=== PATIENT | female | born 1950 | race Caucasian/White ===

== ENCOUNTER → 2017-02-19 | Outpatient (CLI) | payer MEDICARE ==
[~2017-02-19] MED LIST: ARIP20TA8; ASPI-621 PO; CARV25TA12 PO; EZET10TA3 PO; INSU100C SC; INSU100C5 SQ-INSULIN; INSU100I28 SQ-INSULIN; METF10002 PO; NITR0.4T SL; RAMI2.5C PO; ROSU20TA PO; SAXA5TAB PO; TICA90TA PO
== END | disposition home or self-care (01) ==
LOC: PETCFH 12:58
PROVIDERS: ATTEND Internal Medicine Cardiovascular Disease
DX: R07.9 Chest pain, unspecified (principal); R06.00 Dyspnea, unspecified; Z72.0 Tobacco use
CPT/HCPCS: 78472; A9560

== ENCOUNTER 2017-04-04 08:42 | Observation (INO) | payer MEDICARE ==
[~2017-04-04] VITALS: Ht 149.9 cm; Wt 65.1 kg
[2017-04-04] MEDS ORDERED: SODIUM CHLORIDE 0.9% 1,000 ML IV SCH (09:07)
[2017-04-04] MEDS: SODIUM CHLORIDE 0.9% 1,000 ML IV SCH ×2 (09:09→16:47)
[2017-04-04 09:41] VITALS: BP 120/55
[2017-04-04] MEDS ORDERED: FENTANYL PF 250 MCG/5ML ONE (10:11)
[2017-04-04] MEDS ORDERED: MIDAZOLAM 1 MG/ML, 5ML ONE (10:11)
[2017-04-04] MEDS ORDERED: TRAZ150T68 PO (10:15)
[2017-04-04] MEDS ORDERED: NITR0.4T8 SL (10:15)
[2017-04-04] MEDS ORDERED: INSU300I SC (10:15)
[2017-04-04] MEDS ORDERED: ASPI-496 PO (10:15)
[2017-04-04] MEDS ORDERED: CLOP75TA PO (10:15)
[2017-04-04] MEDS ORDERED: EZET10TA3 PO (10:15)
[2017-04-04] MEDS ORDERED: METF500T4 PO (10:15)
[2017-04-04] MEDS ORDERED: ROSU40TA PO (10:15)
[2017-04-04] MEDS ORDERED: LURA40TA PO (10:15)
[2017-04-04 10:19] LABS: ASPARTATE AMINO TRANSFERASE 13 U/L (15-37); BLOOD UREA NITROGEN 9 mg/dL (7-18)
[2017-04-04] MEDS ORDERED: CEFAZOLIN PMX 1GM/50ML 50 ML ONE (12:08)
[2017-04-04] MEDS ORDERED: CEFAZOLIN 1,000 MG ONE ×2 (12:09→12:15)
[2017-04-04] MEDS ORDERED: LIDOCAINE 2%, 20ML ONE (12:09)
[2017-04-04] MEDS ORDERED: ONDANSETRON 2MG/ML, 2ML ONE (12:15)
[2017-04-04] MEDS ORDERED: DEXAMETHASONE 4 MG/ML, 1ML ONE (12:15)
[2017-04-04] MEDS ORDERED: PROPOFOL 10 MG/ML, 20ML ONE (12:15)
[2017-04-04] MEDS ORDERED: EPHEDRINE 50 MG/ML, 1ML IVPush PRN (13:30)
[2017-04-04] MEDS ORDERED: ACETAMINOPHEN 325 MG TABLET PO PRN (13:30)
[2017-04-04] MEDS ORDERED: MIDAZOLAM 1 MG/ML, 2ML IV PRN (13:30)
[2017-04-04] MEDS ORDERED: HYDROmorphone 1 MG/ML, 1ML IV PRN (13:30)
[2017-04-04] MEDS ORDERED: FENTANYL PF 100 MCG/2ML IV PRN (13:30)
[2017-04-04] MEDS ORDERED: ONDANSETRON 2MG/ML, 2ML IVPush PRN (13:30)
[2017-04-04] MEDS ORDERED: ZOLPIDEM 5MG TABLET PO PRN (13:30)
[2017-04-04] MEDS ORDERED: HYDROcodone/APAP 5/325 TABLET PO PRN (13:30)
[2017-04-04] MEDS ORDERED: NITROGLYCERIN 0.4 MG BOTTLE (25 TABS) SL SCH (13:30)
[2017-04-04] MEDS ORDERED: PROMETHAZINE 25 MG/ML, 1ML IV PRN (13:30)
[2017-04-04] MEDS ORDERED: OXYcodone 5 MG/5 ML ORAL.SOL UDC PO PRN (13:30)
[2017-04-04] MEDS ORDERED: SODIUM CHLORIDE 0.45% 1,000 ML IV SCH (13:30)
[2017-04-04] MEDS ORDERED: ACETAMINOPHEN 650 MG/20.3 ML UDC ONE (14:14)
[2017-04-04] MEDS ORDERED: OXYcodone 5 MG/5 ML ORAL.SOL UDC ONE (14:15)
[2017-04-04 14:50] VITALS: BP 102/69
[2017-04-04] MEDS: CEFAZOLIN PMX 1GM/50ML 50 ML IVPB SCH ×2 (17:00→22:06)
[2017-04-04 19:48] VITALS: BP 110/70
[2017-04-04 22:05] VITALS: BP 107/69
[2017-04-04] MEDS: SODIUM CHLORIDE FLUSH 10ML SYR IVF SCH (22:06)
[2017-04-04] MEDS: metFORMIN 500 MG TABLET PO SCH (22:07)
[2017-04-04] MEDS: CARVEDILOL 6.25 MG TABLET PO SCH (22:07)
[2017-04-05] MEDS: SODIUM CHLORIDE 0.9% 1,000 ML IV SCH ×2 (01:09→09:09)
[2017-04-05 02:02] VITALS: BP 105/72
[2017-04-05 08:01] VITALS: BP 105/68
[2017-04-05] MEDS: CEFAZOLIN PMX 1GM/50ML 50 ML IVPB SCH ×3 (08:52→10:07)
[2017-04-05] MEDS: CARVEDILOL 6.25 MG TABLET PO SCH (08:54)
[2017-04-05] MEDS: metFORMIN 500 MG TABLET PO SCH (08:55)
[2017-04-05] MEDS ORDERED: RAMIPRIL 2.5 MG CAPSULE PO SCH (09:00)
[2017-04-05] MEDS: SODIUM CHLORIDE FLUSH 10ML SYR IVF SCH (09:00)
[2017-04-05] MEDS ORDERED: ASPIRIN 81 MG TABLET EC PO SCH (09:00)
[2017-04-05] MEDS ORDERED: CLOPIDOGREL 75 MG TABLET PO SCH (09:00)
[2017-04-05] MEDS ORDERED: EZETIMIBE 10 MG TABLET PO SCH (09:00)
[2017-04-05] MEDS ORDERED: TRAZODONE 150MG TABLET PO SCH (09:00)
== END 2017-04-05 11:50 | disposition home or self-care (01) ==
LOC: CACL 08:42 → EDSTATUS 11:00 → ORIP 13:06 → 5SO 14:53
PROVIDERS: ADMIT Internal Medicine Cardiovascular Disease; ATTEND Internal Medicine Cardiovascular Disease
DX: I25.5 Ischemic cardiomyopathy (principal); I50.9 Heart failure, unspecified; I25.10 Atherosclerotic heart disease of native coronary artery without angina pectoris
CPT/HCPCS: 33249; 36415; 71010; 71020; 80053; 85025; 85610; 93005; 93640; 96365; 96375; C1721; C1779; C1892; C1895; G0378; J0690; J1100; J2250; J2405; J2704; J3010; J3490

== ENCOUNTER 2017-04-10 12:06 | Emergency (ER) | payer MEDICARE ==
[~2017-04-10] VITALS: Ht 149.9 cm; Wt 64.3 kg
[~2017-04-10 12:06] MED LIST changes: +ASPI-496 PO; +CLOP75TA PO; +INSU300I SC; +LURA40TA PO; +METF500T4 PO; +NITR0.4T8 SL; +ROSU40TA PO; +TRAZ150T68 PO
[2017-04-10] MEDS ORDERED: SODIUM CHLORIDE FLUSH 10ML SYR IVF ONE (13:30)
[2017-04-10 13:59] LABS: BLOOD UREA NITROGEN 15 mg/dL (7-18)
[2017-04-10 14:53] VITALS: BP 119/55
[2017-04-10] MEDS ORDERED: OMNIPAQUE 350 MG/ML, 100ML BOTTLE ONE (15:47)
== END 2017-04-10 17:04 | disposition home or self-care (01) ==
LOC: ED 15:55
DX: S04.1 Injury of oculomotor nerve (principal); E11.9 Type 2 diabetes mellitus without complications; E78.5 Hyperlipidemia, unspecified; I10 Essential (primary) hypertension; Z95.0 Presence of cardiac pacemaker; I25.10 Atherosclerotic heart disease of native coronary artery without angina pectoris; F17.200 Nicotine dependence, unspecified, uncomplicated; X58.XXXA Exposure to other specified factors, initial encounter; Y93.89 Activity, other specified; Y92.89 Other specified places as the place of occurrence of the external cause; Y99.9 Unspecified external cause status
CPT/HCPCS: 36415; 70450; 70496; 70498; 80048; 82040; 85025; 85610; 85730; 99285; Q9967

== ENCOUNTER → 2017-12-03 | Outpatient (CLI) | payer MEDICARE ==
[~2017-12-03] MED LIST changes: +ARIP20TA5; -ARIP20TA8; +EZET10TA18 PO; -EZET10TA3 PO; +NITR0.4T28 SL; -NITR0.4T8 SL; +TRAZ150T62 PO; -TRAZ150T68 PO
== END ==
LOC: CFH 10:44
PROVIDERS: ATTEND Family Medicine
DX: Z12.31 Encounter for screening mammogram for malignant neoplasm of breast (principal)
CPT/HCPCS: 77067

== ENCOUNTER → 2019-01-13 | Outpatient (CLI) | payer MEDICARE ==
[~2019-01-13] MED LIST changes: -ASPI-621 PO; +ASPI81TA45 PO; +METF500T17 PO; -METF500T4 PO; -RAMI2.5C PO; +RAMI2.5C2 PO; -ROSU20TA PO; +ROSU20TA2 PO
== END | disposition home or self-care (01) ==
LOC: CFH 11:58
PROVIDERS: ATTEND Internal Medicine Cardiovascular Disease
DX: I08.3 Combined rheumatic disorders of mitral, aortic and tricuspid valves (principal); I25.5 Ischemic cardiomyopathy; I25.10 Atherosclerotic heart disease of native coronary artery without angina pectoris; E11.9 Type 2 diabetes mellitus without complications; I25.2 Old myocardial infarction; I11.9 Hypertensive heart disease without heart failure; Z95.0 Presence of cardiac pacemaker
CPT/HCPCS: 93306

== ENCOUNTER → 2019-04-08 | Outpatient (CLI) | payer MEDICARE ==
[~2019-04-08] MED LIST changes: -NITR0.4T SL; +NITR0.4T41 SL
== END | disposition home or self-care (01) ==
LOC: CVU 08:31
PROVIDERS: ATTEND Family Medicine
DX: I74.5 Embolism and thrombosis of iliac artery (principal); I77.1 Stricture of artery; E11.9 Type 2 diabetes mellitus without complications; E78.5 Hyperlipidemia, unspecified; I25.10 Atherosclerotic heart disease of native coronary artery without angina pectoris; F17.200 Nicotine dependence, unspecified, uncomplicated
CPT/HCPCS: 93922; 93926

== ENCOUNTER → 2020-02-04 | Outpatient (CLI) | payer MEDICARE ==
[~2020-02-04] MED LIST changes: -EZET10TA18 PO; +EZET10TA70 PO; +REGADENOSON 0.4 MG/5 ML SYRINGE ONE
== END | disposition home or self-care (01) ==
LOC: CFH 11:35
PROVIDERS: ATTEND Internal Medicine Cardiovascular Disease
DX: I25.10 Atherosclerotic heart disease of native coronary artery without angina pectoris (principal); I10 Essential (primary) hypertension
CPT/HCPCS: 78452; 93017; A9502; J2785

== ENCOUNTER 2021-02-08 13:04 | Emergency (ER) | payer MEDICARE ==
[~2021-02-08] VITALS: Ht 149.9 cm; Wt 62.1 kg
[~2021-02-08 13:04] MED LIST changes: -RAMI2.5C2 PO; +RAMI2.5C49 PO; -REGADENOSON 0.4 MG/5 ML SYRINGE ONE
--- NOTE | 2021-02-08 13:27 | NUR ---
PT BIB [facility] FOR BEING FOIND ON TOILET WITH ALOC. BS WAS 33 ON SCENE QUICKLY CORRECTED TO 304 WITH 250 MLS OF D10. PT REPORTS FEELING FINE NOW. SHE WAS SWEATING GARMENT PRESSER AND CLOTHES ARE DAMP. TEMP WAS 94.5. PT PROVIDED WARM BLANKETS AND HEATER. PT ON MONITOR.
[2021-02-08 13:51] LABS: BASOPHILS % (AUTO) 1 % (0-1); EOSINOPHILS % (AUTO) 1 % (1-7); LYMPHOCYTES % (AUTO) 14 % (22-44); MEAN CORPUSCULAR HEMOGLOBIN 30.5 pg (27.0-34.8); MEAN CORPUSCULAR HGB CONC 32.9 g/dL (32.4-35.8); MEAN PLATELET VOLUME 8.7 fL (7.4-10.4); MONOCYTES % (AUTO) 6 % (2-9); NEUTROPHILS % (AUTO) 78 % (42-75); PLATELET COUNT 211 x10^3/uL (130-400); RED BLOOD COUNT 4.72 x10^6/uL (3.82-5.3); RED CELL DISTRIBUTION WIDTH 14.6 % (9.6-15.2)
[2021-02-08 13:56] LABS: MD NO
[2021-02-08 14:03] LABS: ALANINE AMINOTRANSFERASE 18 U/L (12-78); ALBUMIN 3.6 g/dL (3.4-5.0); ANION GAP 7 mmol/L (5-15); CALCIUM 9.5 mg/dL (8.5-10.1); CHLORIDE 109 mmol/L (98-107); CREATININE 1.21 mg/dL (0.55-1.02)
[2021-02-08 14:08] LABS: ALKALINE PHOSPHATASE 94 U/L (45-117); BILIRUBIN,TOTAL 0.5 mg/dL (0.2-1.0); TOTAL PROTEIN 7.2 g/dL (6.4-8.2); TROPONIN I 0.032 ng/mL (0.000-0.045)
--- NOTE | 2021-02-08 14:36 | NUR ---
PT GIVN CHOCOLATE MILK UNTIL FOOD ARRIVES FROM [facility] PER PT REQUEST.
--- NOTE | 2021-02-08 14:55 | NUR ---
REPORT TO JOSEFINA GARDUNO.
--- NOTE | 2021-02-08 14:58 | NUR ---
report from gabriel magana. food tray delivered
--- NOTE | 2021-02-08 15:18 | NUR ---
OLIVA, PTS BEST FRIEND [phone]. ONLY PHONE # PT CAN REMEMBER. OLIVA PASSED ON # FOR NYLA [phone] AND DESIREE [phone] WHO ARE ALSO FRIENDS WITH PT AND PER OLIVA HEP TAKE HER PLACES.
--- NOTE | 2021-02-08 15:18 | NUR ---
PT UP TO RESTROOM WITH STEADY INDEPENDENT GAIT. PT ATE 100% OF MEAL ND STATES SHE IS FEELING BETTER
--- NOTE | 2021-02-08 15:35 | NUR ---
Daughter Seema [phone]. able to get ahold of her, states her brother Jairo (whom pt lives with) will be here to get pt after he picks son up from school. she will have him call to touch base with rn.
--- NOTE | 2021-02-08 15:36 | NUR ---
son/soledad [phone], states he will be here around 1700, heading from [place].
--- NOTE | 2021-02-08 16:21 | NUR ---
pt up to restroom.
--- NOTE | 2021-02-08 16:51 | NUR ---
pt given apple juice and greg crackers
[2021-02-08 17:16] VITALS: BP 115/49
== END 2021-02-08 17:17 | disposition home or self-care (01) ==
LOC: ED 16:11
DX: E11.649 Type 2 diabetes mellitus with hypoglycemia without coma (principal); I10 Essential (primary) hypertension; I25.2 Old myocardial infarction; I25.10 Atherosclerotic heart disease of native coronary artery without angina pectoris; E78.5 Hyperlipidemia, unspecified
CPT/HCPCS: 36415; 80053; 82962; 84484; 85025; 93005; 99284